=== PATIENT | male | born 2000 | race Caucasian/White ===

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

== ENCOUNTER 2020-06-10 19:33 | Emergency (ER) | payer SELFPAY ==
[~2020-06-10] VITALS: Ht 187.9 cm; Wt 104.3 kg
[~2020-06-10 19:33] MED LIST: CYCLOBENZAPRINE5 M3 PO; Motrin,Rufen800 MG PO
[2020-06-10 19:37] VITALS: BP 142/94
[2020-06-10] MEDS ORDERED: PREDNISONE10 MG PO (20:42)
[2020-06-10] MEDS ORDERED: MYCOLOG CREAM 115 GM T (20:42)
[2020-06-10] MEDS ORDERED: VISTARIL50 MG PO (20:44)
== END 2020-06-10 21:00 | disposition home or self-care (01) ==
LOC: ED 19:33
DX: L25.9 Unspecified contact dermatitis, unspecified cause (principal); Z79.899 Other long term (current) drug therapy

== ENCOUNTER → 2020-08-09 | Outpatient (CLI) | payer BC ==
[~2020-08-09] MED LIST changes: +MYCOLOG CREAM 115 GM T; +PREDNISONE10 MG PO; +VISTARIL50 MG PO
== END | disposition home or self-care (01) ==
LOC: COVID19 09:30
PROVIDERS: ATTEND Family Medicine
DX: U07.1 COVID-19 (principal)

== ENCOUNTER 2022-11-26 18:39 | Emergency (ER) | payer SELFPAY ==
[~2022-11-26] VITALS: Ht 185.4 cm; Wt 104.3 kg
[2022-11-26 18:51] VITALS: BP 150/94
== END 2022-11-26 19:43 | disposition home or self-care (01) ==
LOC: ED 18:39
DX: B27.90 Infectious mononucleosis, unspecified without complication (principal); Z20.822 Contact with and (suspected) exposure to COVID-19

== ENCOUNTER 2023-09-04 13:27 | Emergency (ER) | payer SELFPAY ==
[~2023-09-04] VITALS: Ht 187.9 cm; Wt 108.9 kg
[2023-09-04 13:38] VITALS: BP 153/87
== END 2023-09-04 19:07 | disposition left against medical advice (07) ==
LOC: ED 13:27
DX: R07.89 Other chest pain (principal); R05.9 Cough, unspecified; Z53.21 Procedure and treatment not carried out due to patient leaving prior to being seen by health care provider

== ENCOUNTER 2025-09-25 21:58 | Emergency (ER) | payer SELFPAY ==
[~2025-09-25] VITALS: Ht 182.8 cm; Wt 108.9 kg
[2025-09-25 22:34] VITALS: BP 167/97
[2025-09-25 22:54] LABS: BASO # 0.1 10*3/uL (0.0-0.1); BASO % 0.5 % (0.0-1.0); EOS # 0.1 10*3/uL (0.0-0.4); EOS % 1.5 % (1.0-4.0); MEAN CELL VOLUME 84.7 fl (80.0-94.0); MEAN CORPUSCULAR HGB 28.9 pg (27.0-31.0); MEAN PLATELET VOLUME 9.4 fl (9.6-12.3); MONO # 0.7 10*3/uL (0.1-1.0); MONO % 7.4 % (3.0-9.0); NEUT # 5.6 10*3/uL (2.3-7.9); NEUT % 59.9 % (47.0-73.0); NUCLEATED RED BLOOD CELL 0.0 % (0.0-0.0); NUCLEATED RED BLOOD CELL 0.0 10*3/uL (0.0-0.0); PLATELET COUNT AUTOMATED 303 10*3/uL (130-400); RED CELL DISTRI WIDTH 12.2 % (0-14.5)
[2025-09-25 23:06] LABS: ACT PARTIAL THROMBO TIME 28.0 SECONDS (20.0-32.1)
[2025-09-25 23:10] LABS: URINE AMPHETAMINES Negative (1000ng/ml); URINE BARBITURATES Negative (200ng/ml); URINE BENZODIAZEPINES Negative (200ng/ml); URINE CANNABINOIDS (THC) Negative (50ng/ml); URINE COCAINE Negative (300ng/ml); URINE METHADONE Negative (300ng/ml); URINE OPIATES Negative (300ng/ml); URINE PHENCYCLIDINE Negative (25ng/ml)
[2025-09-25 23:12] LABS: BUN 13 mg/dl (9-23)
[2025-09-25] MEDS ORDERED: SALINE NASAL SP44 ML NAS (23:46)
== END 2025-09-25 23:58 | disposition home or self-care (01) ==
LOC: ED 21:58
PROVIDERS: Internal Medicine
DX: R55 Syncope and collapse (principal); Z79.899 Other long term (current) drug therapy